=== PATIENT | female | born 1960 | race Two or more races ===

== ENCOUNTER 2025-01-10 22:50 | Emergency (ER) | payer OTHER ==
[~2025-01-10] VITALS: Ht 170.2 cm; Wt 84.0 kg
[2025-01-10 23:15] VITALS: BP 178/85; PULSE 89; RESP 16; TEMP 98; O2SAT 96
[2025-01-11] MEDS ORDERED: ACET500T58 PO (01:22)
--- NOTE | 2025-01-11 01:22 | ED.PDOC ---
Musculoskeletal HPI Comments 64-year-old female presents to ER with complaints of right 2nd toe pain x1 day. Patient reports she has been experiencing pain/swelling/bruising to right 2nd toe s/p hitting right 2nd toe against the corner of a wooden chest in her bedroom while walking barefoot at 10:00 p.m. prior to arrival to ER. She rates her current pain a 5/10 to right 2nd toe without radiation. Denies use of medications for current symptoms and presents to ER ambulatory on arrival, with steady gait, in no distress. Denies numbness/tingling or any further symptoms/complaints Chief Complaint: Lower Extremity Time Seen by MD: 23:46 Primary Care Provider: JI Reviewed Notes: Nurses Notes, Medications, Allergies Allergies: Coded Allergies: NO KNOWN ALLERGIES (Unverified , 01/10/25) Home Meds Active Scripts Acetaminophen (Acetaminophen) 500 Mg Tab, 500 MG PO Q4HPRN, #30 TAB 0 Refills Prov:JOSE PENNINGTON 01/11/25 Information Source: Patient Mode of Arrival: Ambulatory Past Medical History PAST MEDICAL HISTORY: Denies Surgical History: Denies all surgeries Family History Family History: Unknown Social History Smoker: Non-Smoker Alcohol: Denies ETOH Use Drugs: Denies Drug Use Lives In: Home Constitutional: denies: chills, diaphoresis, fatigue, fever, malaise, sweats, weakness, others EENTM: denies: blurred vision, double vision, ear bleeding, ear discharge, ear drainage, ear pain, ear ringing, eye pain, eye redness, hearing loss, mouth pain, mouth swelling, nasal discharge, nose bleeding, nose congestion, nose pain, photophobia, tearing, throat pain, throat swelling, voice changes, others Respiratory: denies: cough, hemoptysis, orthopnea, SOB at rest, shortness of breath, SOB with excertion, stridor, wheezing, others Cardiovascular: denies: chest pain, dizzy spells, diaphoresis, Dyspnea on exertion, edema, irregular heart beat, left arm pain, lightheadedness, palpitations, PND, syncope, others Gastrointestinal: denies: abdomen distended, abdominal pain, blood streaked bowels, constipated, diarrhea, dysphagia, difficulty swallowing, hematemesis, melena, nausea, poor appetite, poor fluid intake, rectal bleeding, rectal pain, vomiting, others Genitourinary: denies: abnormal vagina bleeding, burning, dyspareunia, dysuria, flank pain, frequency, hematuria, incontinence, pain, , vagina discharge, urgency, others Neurological: denies: dizziness, fainting, headache, left sided numbness, left sided weakness, numbness, paresthesia, pre-existing deficit, right sided numbness, right sided weakness, seizure, speech problems, tingling, tremors, weakness, others Musculoskeletal: reports: others ( STATED IN HPI) Integumetry: reports: others ( STATED IN HPI) Allergic/Immunocompromised: denies: Difficulty Healing, Frequent Infections, Hives, Itching, others Hematologic/Lymphatic: denies: anemia, blood clots, easy bleeding, easy brui sing, swollen glands, others Endocrine: denies: excessive hunger, excessive sweating, excessive thirst, ex cessive urination, flushing, intolerance to cold, intolerance to heat, unexplained weight gain, unexplained weight loss, others Psychiatric: denies: anxiety, bipolar disorder, depression, hopeless, panic disorder, schizophrenia, sleepless, suicidal, others Physical Exam General Appearance: No Apparent Distress HEENT: PERRL/EOMI Neck: Full Range of Motion, Non-Tender, Normal Respiratory: Chest Non-Tender, Lungs Clear, No Accessory Muscle Use, No Respiratory Distress, Normal Breath Sounds Cardiovascular: No Murmur, No Gallop, Regular Rate/Rhythm Breast Exam: Deferred Gastrointestinal: NOT DONE Genitalia: Deferred Pelvic: Deferred Rectal: Deferred Extremities: No calf tenderness, Normal capillary refill, Normal range of motion Musculoskeletal : Extremity Location: Toe 2 (TTP/MILD SWELLING/ECCHYMOSIS NOTED TO RIGHT 2ND TOE. NO NAILBED INJURY/FURTHER SKIN CHANGES NOTED. PULSES INTACT. PATIENT ABLE TO MOVE ALL TOES OF RIGHT FOOT. STEADY GAIT APPRECIATED) Neurologic: Alert, No Motor Deficits, Normal Affect, Normal Mood, No Sensory Deficits Cerebellar Function: Normal Reflexes: Normal Skin: Dry, Warm Peripheral Pulses: 2+ dorsalis pedis (R), 2+ dorsalis pedis (L) Lymphatic: No Adenopathy Was a procedure done? Was a procedure done?: No Sedation Sedation?: No Differential Diagnosis EXT Differential Diagnosis: Sprain, Dislocation, Laceration, Neurovascular injury X-Ray, Labs, Meds, VS Vital Signs Date Time Temp Pulse Resp B/P (MAP) Pulse Ox O2 Delivery O2 Flow Rate FiO2 01/11/25 01:26 Room Air* 0 21 01/10/25 23:15 98.0 89 16 178/85 (116) 96 98.0 PATIENT: ELAN COOPERCT: [id number]: [id number] : 1960 LOC: ER ROOM / BED: / AGE / SEX: 64 / F ADM STATUS: REG ER SERVICE 45 ORDERING PHYSICIAN: JOSE PENNINGTON PROCEDURE(s): RTOE2 - R 2ND TOE XRAY REASON: RIGHT 2ND TOE PAIN ORDER NUMBER(s): [id number], ACCESSION NUMBER(s): [id number] CLINICAL INDICATION: RIGHT 2ND TOE PAIN TECHNIQUE: XY R 2ND TOE XRAY Comparison: None FINDINGS/IMPRESSION: Nondisplaced acute traumatic fracture of the 2nd digit proximal phalanx Mild soft tissue swelling of the 2nd digit. ATED BY: MICKY HORTON MD DICTATED DATE/TIME: 01/11/25149 SIGNED BY: MICKY HORTON MD SIGNED DATE/TIME: 01/11/25149 CC: RIGHT 2ND TOE X-RAY REVIEWED GABY TAPE AND HARD SOLE SHOE APPLIED PATIENT NEUROVASCULARLY INTACT ADVISED ON REST/NO STRENUOUS ACTIVITY, ELEVATION AND ALTERNATE ICE ON/OFF NEEDED FOR PAIN/SWELLING ADVISED TO FOLLOW UP WITH PCP AND PODIATRY IN 1-2 DAYS PATIENT VERBALIZED UNDERSTANDING AND AGREEABLE WITH CURRENT PLAN OF CARE ADVISED TO RETURN TO ER IMMEDIATELY IF SYMPTOMS WORSEN Images Reviewed?: Images reviewed and evaluated by me Time of 1ST Reevaluation: 01:04 Reevaluation 1ST: N/A Patient Education/Counseling: Diagnosis, Treatment, Prognosis, Need For Follow Up Family Education/Counseling: No Family Present Departure 1 Departure Time of Disposition: 01:20 Impression: Primary Impression: Toe fracture, right Qualified Codes: S92.504A - Nondisplaced unspecified fracture of right lesser toe(s), initial encounter for closed fracture Disposition: 01 HOME / SELF CARE / HOMELESS Condition: Stable e-Prescriptions Acetaminophen (Acetaminophen) 500 Mg Tab 500 MG PO Q4HPRN, #30 TAB 0 Refills Prov: JOSE PENNINGTON 01/11/25 Discharged With: Friend Critical Care Note Critical Care Time?: No Stability Stability form required: No Heart Score Heart Score: Heart Score Response (Comments) Value History N/A 0 EKG N/A 0 Age N/A 0 Risk Factors N/A 0 Troponin N/A 0 Total 0 JOSE PENNINGTON Jan 11, 2025 01:22
--- NOTE | 2025-01-11 01:53 | DVH ---
CLINICAL INDICATION: RIGHT 2ND TOE PAIN TECHNIQUE: XY R 2ND TOE XRAY Comparison: None FINDINGS/IMPRESSION: Nondisplaced acute traumatic fracture of the 2nd digit proximal phalanx Mild soft tissue swelling of the 2nd digit.
== END 2025-01-11 01:33 | disposition home or self-care (01) ==
LOC: ER 22:50
DX: S92.514A Nondisplaced fracture of proximal phalanx of right lesser toe(s), initial encounter for closed fracture (principal); W22.8XXA Striking against or struck by other objects, initial encounter; Y93.01 Activity, walking, marching and hiking; Y92.89 Other specified places as the place of occurrence of the external cause; Y99.8 Other external cause status
CPT/HCPCS: 73660